=== PATIENT | male | born 1985 | race Asian ===

== ENCOUNTER 2020-07-21 11:56 | Emergency (ER) | payer SELFPAY ==
[~2020-07-21] VITALS: Ht 185.4 cm; Wt 99.8 kg
--- NOTE | 2020-07-21 12:07 | NUR ---
ED Nurse Note: patient from street and brought in by [facility] 26 due to behavioral complaint. Per EMS, patient was reported to be running in traffic and being aggressive. Patient has history of substance abuse. HR is 116 in registered nurse cardiac telemetry. patient is AAO x4, follows commands with non labored breathing. Calm and cooperative upon ED arrival.
[2020-07-21] MEDS ORDERED: LORazepam Inj 2mg/ml 1ml IM ONE (12:30)
--- NOTE | 2020-07-21 12:45 | NUR ---
HAND-OFF: Report given to Frank MARTEL.
--- NOTE | 2020-07-21 12:52 | Emergency Room Report ---
History of Present Illness General Chief Complaint: Behavioral Complaint Source: Patient Present Illness HPI 35-year-old male presents to the emergency department brought in by ambulance due to behavioral disorder and altered mental status. Patient admits to history of drug use. He denies medical history other than chronic pain to the bilateral feet. Patient reports drug abuse with opiates, heroin, speed and marijuana. He denies drug use today. He denies chest pain or palpitations. He reports recently being released from long term 5 days ago and currently encountering financial hardship and is living with his mother. Patient denies having any other symptoms at this time. Patient is requesting prescription of "painkillers and some benzos." Allergies: Coded Allergies: No Known Allergies (Unverified , 07/21/20) COVID-19 Screening Contact w/high risk pt: No Experienced COVID-19 symptoms?: No COVID-19 Testing performed DIRECTOR PRISON: No Patient History Past Medical History: see triage record Past Surgical History: unable to obtain Pertinent Family History: unable to obtain Social History: Reports: drug use Immunizations: UTD Reviewed Nursing Documentation: PMH: Agreed; PSxH: Agreed Nursing Documentation-PMH Past Medical History: No History, Except For Review of Systems All Other Systems: negative except mentioned in HPI Physical Exam Vital Signs Date Time Temp Pulse Resp B/P (MAP) Pulse Ox O2 Delivery O2 Flow Rate FiO2 07/21/20 11:59 98.1 128 24 134/78 (96) 97 Room Air Sp02 EP Interpretation: reviewed, normal General Appearance: no apparent distress, alert, GCS 15, non-toxic Head: normocephalic, atraumatic Eyes: bilateral eye normal inspection, bilateral eye PERRL ENT: hearing grossly normal, normal voice Neck: full range of motion, no meningismus, no bony tend Respiratory: chest non-tender, lungs clear, normal breath sounds, no wheezing, speaking full sentences Cardiovascular #1: regular rate, rhythm, no edema, tachycardia Gastrointestinal: normal bowel sounds, non tender, soft Genitourinary: no CVA tenderness Musculoskeletal: back normal, normal range of motion, gait/station normal, non- tender Neurologic: alert, motor strength/tone normal, oriented x3, sensory intact, responsive, speech normal, normal gait Psychiatric: judgement/insight normal, no suicidal/homicidal ideation, no delusions, anxious - pt. pacing and anxious on arrival. reports to using speed. Skin: other - pressure blisters on the balls of the foot bilaterally, some warmth and erythema. negative niklosky sign. Lymphatic: no adenopathy Medical Decision Making PA Attestation Dr. Cody is my supervising Physician whom patient management has been discussed with. Diagnostic Impression: Primary Impression: Behavioral disorder Additional Impression: Blisters of multiple sites, infected ER Course 35-year-old male presents to the emergency department brought in by ambulance due to behavioral disorder and altered mental status. Patient admits to history of drug use. He denies medical history other than chronic pain to the bilateral feet. Denies psychiatric hx or previous psychiatric Hospitalizations. Patient reports drug abuse with opiates, heroin, speed and marijuana. He denies drug use today. He denies chest pain or palpitations. He reports recently being released from long term 5 days ago and currently encountering financial hardship and is living with his mother. Patient denies having any other symptoms at this time. Patient is requesting prescription of "painkillers and some benzos." Pt. denies Fevers or chills. He denies itchy rashes. He denies open wounds other than the blisters on the bottom of his feet. He reports he is UTD with vaccinations. He reports he used antifungal cream on his feet in addition to getting new shoes without relief. PT. denies having a regular psychiatrist. Pt is hyperactive, and has a very anxious and restless affect. He answers questions appropriately. Ddx considered but are not limited to OD, SI/HI, psychosis, UTI, intoxication Vital signs: PT. is tachycardic, remaining VS are WNL, pt. is afebrile H&PE are most consistent with behavioral/mental health issue with concomitant drug abuse hx ORDERS: -CBC, CMP: Unremarkable -UA: negative for infection see results attached. -UDS: POSITIVE for: cocaine, amphetamines, THC, and benzodiazepines. -Salicylates and Acetaminophen: WNL - Serum ETOH - no acute intoxication. - EK NSR, no acute ST changes ED INTERVENTIONS: - 2mg Ativan IM DISCHARGE: At this time pt. is stable for d/c to home. Will provide printed patient care instructions, and any necessary prescriptions. Care plan and follow up instructions have been discussed with the patient prior to discharge. d/w pt. importance of avoidance of illicit drug use and polypharmacy. D/w pt. resources for drug detoxification. Labs Test 07/21/20 13:17 07/21/20 13:43 White Blood Count 11.9 K/UL (4.8-10.8) Red Blood Count 4.94 M/UL (4.70-6.10) Hemoglobin 14.7 G/DL (14.2-18.0) Hematocrit 44.7 % (42.0-52.0) Mean Corpuscular Volume 91 FL (80-99) Mean Corpuscular Hemoglobin 29.8 PG (27.0-31.0) Mean Corpuscular Hemoglobin Concent 32.9 G/DL (32.0-36.0) Red Cell Distribution Width 11.5 % (11.6-14.8) Platelet Count 223 K/UL (150-450) Mean Platelet Volume 7.5 FL (6.5-10.1) Neutrophils (%) (Auto) 84.7 % (45.0-75.0) Lymphocytes (%) (Auto) 8.3 % (20.0-45.0) Monocytes (%) (Auto) 5.8 % (1.0-10.0) Eosinophils (%) (Auto) 0.5 % (0.0-3.0) Basophils (%) (Auto) 0.7 % (0.0-2.0) Sodium Level 141 MMOL/L (136-145) Potassium Level 3.9 MMOL/L (3.5-5.1) Chloride Level 104 MMOL/L (98-107) Carbon Dioxide Level 25 MMOL/L (21-32) Anion Gap 12 mmol/L (5-15) Blood Urea Nitrogen 28 mg/dL (7-18) Creatinine 1.1 MG/DL (0.55-1.30) Estimat Glomerular Filtration Rate > 60 mL/min (>60) Glucose Level 117 MG/DL (74-106) Calcium Level 9.1 MG/DL (8.5-10.1) Total Bilirubin 0.8 MG/DL (0.2-1.0) Aspartate Amino Transf (AST/SGOT) 115 U/L (15-37) Alanine Aminotransferase (ALT/SGPT) 81 U/L (12-78) Alkaline Phosphatase 71 U/L (46-116) Total Protein 7.7 G/DL (6.4-8.2) Albumin 4.0 G/DL (3.4-5.0) Globulin 3.7 g/dL Albumin/Globulin Ratio 1.1 (1.0-2.7) Salicylates Level 2.4 ug/mL (2.8-20) Acetaminophen Level < 2 MCG/ML (10-30) Serum Alcohol < 3 mg/dL Urine Opiates Screen Negative (NEGATIVE) Urine Barbiturates Screen Negative (NEGATIVE) Phencyclidine (PCP) Screen Negative (NEGATIVE) Urine Amphetamines Screen Positive (NEGATIVE) Urine Benzodiazepines Screen Positive (NEGATIVE) Urine Cocaine Screen Positive (NEGATIVE) Urine Marijuana (THC) Screen Positive (NEGATIVE) EKG Diagnostic Results Troponin ordered: No EKG Time: 12:57 Rate: tachycardiac Rhythm: NSR - 111 ST Segments: no acute changes ASA given to the pt in ED: No PA Scribe Text This Interpretation was scribed by SUNDAR López. Last Vital Signs Date Time Temp Pulse Resp B/P (MAP) Pulse Ox O2 Delivery O2 Flow Rate FiO2 07/21/20 12:03 116 20 Room Air 07/21/20 11:59 98.1 134/78 (96) 97 Status: improved Disposition: HOME, SELF-CARE Condition: Stable Scripts Bacitracin (Bacitracin) 28.4 Gm Oint...g. 1 APPLIC TOPIC THREE TIMES A DAY, #28.3 GM Prov: Lindsey López 07/21/20 Cephalexin* (KEFLEX*) 500 Mg Capsule 500 MG ORAL EVERY 12 HOURS for 7 Days, #14 CAP 0 Refills Prov: Lindsey López 07/21/20 Referrals: [facility] Patient Instructions: Sinus Tachycardia, Self-Destructive Behavior Additional Instructions: Take medications as directed. Do not drink alcohol, drive, or operate heavy machinery while taking ATIVAN as this may cause drowsiness.-- you received a dose during your visit. Follow up with a Primary Care Provider in 3-5 days, even if your symptoms have resolved. --Please review list of primary care clinics, if you do not already have a prima ry care provider Return sooner to ED if new symptoms occur, or current symptoms become worse. - Please note that this Emergency Department Report was dictated using [employer] technology software, occasionally this can lead to erro neous entry secondary to interpretation by the dictation equipment. Lindsey López Jul 21, 2020 12:51
[2020-07-21 13:02] VITALS: BP 124/93
[2020-07-21 13:33] LABS: BASOPHILS % (AUTO) 0.7 % (0.0-2.0); EOSINOPHILS % (AUTO) 0.5 % (0.0-3.0); HEMATOCRIT 44.7 % (42.0-52.0); HEMOGLOBIN 14.7 G/DL (14.2-18.0); LYMPHOCYTES % (AUTO) 8.3 % (20.0-45.0); MEAN CORPUSCULAR VOLUME 91 FL (80-99); MONOCYTES % (AUTO) 5.8 % (1.0-10.0); NEUTROPHILS % (AUTO) 84.7 % (45.0-75.0); PLATELET COUNT 223 K/UL (150-450); RED BLOOD COUNT 4.94 M/UL (4.70-6.10); RED CELL DISTRIBUTION WIDTH 11.5 % (11.6-14.8); WHITE BLOOD COUNT 11.9 K/UL (4.8-10.8)
[2020-07-21 13:44] LABS: POTASSIUM 3.9 MMOL/L (3.5-5.1)
[2020-07-21 13:51] LABS: BLOOD UREA NITROGEN 28 mg/dL (7-18); CHLORIDE 104 MMOL/L (98-107)
[2020-07-21 13:58] LABS: ALANINE AMINOTRANSFERASE 81 U/L (12-78); ALBUMIN/GLOBULIN RATIO 1.1 (1.0-2.7); ALKALINE PHOSPHATASE 71 U/L (46-116); ANION GAP 12 mmol/L (5-15); ASPARTATE AMINO TRANSFERASE 115 U/L (15-37); BILIRUBIN,TOTAL 0.8 MG/DL (0.2-1.0); CALCIUM 9.1 MG/DL (8.5-10.1); CARBON DIOXIDE 25 MMOL/L (21-32); CREATININE 1.1 MG/DL (0.55-1.30); SODIUM 141 MMOL/L (136-145)
[2020-07-21] MEDS ORDERED: BACITRACIN15 GM TOPIC (14:25)
[2020-07-21] MEDS ORDERED: CEPHALEXIN500 MG ORAL (14:25)
--- NOTE | 2020-07-21 14:52 | NUR ---
ER DISCHARGE NOTE: Patient is cleared to be discharged per ERMD, pt is aox4, on room air, pt refusing last set of vitals. pt was given dc and prescription instructions, pt was able to verbalize understanding, pt id band and iv site removed without complications. pt is able to ambulate with steady gait. pt took all belongings. pt verbalizes plan for external support resources, given referrals to clinic.
== END 2020-07-21 14:40 | disposition home or self-care (01) ==
LOC: EDBD 11:56 → EMR 13:51
DX: F91.9 Conduct disorder, unspecified (principal); S90.822A Blister (nonthermal), left foot, initial encounter; S90.821A Blister (nonthermal), right foot, initial encounter; F14.10 Cocaine abuse, uncomplicated; F15.10 Other stimulant abuse, uncomplicated; F12.10 Cannabis abuse, uncomplicated; F13.10 Sedative, hypnotic or anxiolytic abuse, uncomplicated; X58.XXXA Exposure to other specified factors, initial encounter; Y93.9 Activity, unspecified; Y92.9 Unspecified place or not applicable
CPT/HCPCS: 36415; 80053; 80307; 85025; 93005; 96372; 99284; G0480